=== PATIENT | male | born 1970 | race African-American/Black ===

== ENCOUNTER → 2019-06-19 | Emergency (ER) | payer BC ==
[~2019-06-19] VITALS: Ht 162.6 cm; Wt 72.6 kg
[~2019-06-19] MED LIST: CALCIUM ASCORB500 MG PO; IBUPROFEN 600600 M1 PO; NORFLEX100 MG PO; PERCOCET 5-3251 EACH PO; VITAMIN D400 UNI1 PO
[2019-06-19 15:17] VITALS: BP 115/69
[2019-06-19 15:57] LABS: URINE BILIRUBIN NEGATIVE (Negative); URINE BLOOD NEGATIVE (Negative); URINE CLARITY CLEAR; URINE COLOR YELLOW; URINE GLUCOSE-RANDOM* NEGATIVE (Negative); URINE KETONES NEGATIVE (Negative); URINE LEUKOCYTES-REFLEX NEGATIVE (Negative); URINE NITRITE-REFLEX NEGATIVE (Negative); URINE PROTEIN (DIPSTICK) TRACE (Negative)
== END ==
LOC: ER 15:13
PROVIDERS: Nurse Practitioner Family
DX: S39.012A Strain of muscle, fascia and tendon of lower back, initial encounter (principal); S29.012A Strain of muscle and tendon of back wall of thorax, initial encounter; Z98.890 Other specified postprocedural states; X58.XXXA Exposure to other specified factors, initial encounter; Y92.89 Other specified places as the place of occurrence of the external cause; Y93.89 Activity, other specified; Y99.8 Other external cause status